=== PATIENT | male | born 1955 | race Two or more races ===

== ENCOUNTER 2018-09-15 18:22 | Emergency (ER) | payer SELFPAY ==
[~2018-09-15] VITALS: Ht 182.9 cm; Wt 99.8 kg
[~2018-09-15 18:22] MED LIST: DENIES ANY HOME MEDS
[2018-09-15 18:51] VITALS: BP 179/99
[2018-09-15] MEDS ORDERED: FLUORESCEIN SOD 1 MG TEST STRIP ONE (20:21)
[2018-09-15] MEDS ORDERED: GENTAMICIN OPTH sol 0.3% 5ml RIGHTEYE ONE (20:45)
[2018-09-15] MEDS ORDERED: FLUORESCEIN SOD 1 MG TEST STRIP RIGHTEYE ONE (20:45)
[2018-09-15] MEDS ORDERED: TETRACAINE HCL 0.5% OPTH(EYE) SOLN 4ML RIGHTEYE ONE (20:45)
[2018-09-15] MEDS ORDERED: GENTAMICIN OPTH sol 0.3% 5ml EACHEYE ONE (20:45)
[2018-09-15] MEDS ORDERED: TETANUS-DIPTH-ACEL PERTUSSIS 0.5ML SYRG IM ONE (21:00)
== END 2018-09-15 21:20 | disposition home or self-care (01) ==
LOC: ER 18:24
DX: T15.01XA Foreign body in cornea, right eye, initial encounter (principal); I10 Essential (primary) hypertension; F17.210 Nicotine dependence, cigarettes, uncomplicated; X58.XXXA Exposure to other specified factors, initial encounter; Y93.89 Activity, other specified; Y92.89 Other specified places as the place of occurrence of the external cause; Y99.8 Other external cause status
CPT/HCPCS: 65222

== ENCOUNTER 2018-11-17 12:35 | Inpatient (IN) | payer SELFPAY ==
[~2018-11-17] VITALS: Ht 182.9 cm; Wt 93.0 kg
[2018-11-17 14:43] LABS: Albumin 2.4 g/dL (3.4-5.0); Calcium 7.8 mg/dL (8.5-10.1); Potassium 3.7 mmol/L (3.5-5.1)
[2018-11-17 14:46] LABS: Basophils # (auto) 0.1 uL; Basophils % (auto) 0.9 % (0.0-2.0); Eosinophils # (auto) 0 uL; Eosinophils % (auto) 0.4 % (0.0-7.0); Hematocrit 47.2 % (41.0-53.0); Lymphocytes % (auto) 19.9 % (10.0-50.0); Mean Corpuscular Hemoglobin 28.5 pg (28.0-32.0); Mean Corpuscular Hgb Conc. 33.9 g/dL (32.0-36.0); Mean Corpuscular Volume 84.1 fL (80.0-100.0); Monocytes # (auto) 0.8 uL; Monocytes % (auto) 7.7 % (0.0-12.0); Neutrophils # (auto) 7.1 uL; Neutrophils % (auto) 71.1 % (37.0-80.0); Nucleated Red Blood Cells % 0.1 %; Platelet Count (auto) 273 10^3/uL (140-450); Red Blood Cells 5.62 10^6/uL (4.5-5.90); Red Cell Distribution Width 13.7 % (11.8-14.3)
[2018-11-17 14:47] LABS: BUN/Creatinine Ratio 15.8; Bilirubin, Total 0.9 mg/dL (0.2-1.0); Total Protein 7.9 g/dL (6.4-8.2)
[2018-11-17 15:10] LABS: Urine Bacteria NONE SEEN /hpf (None Seen); Urine Blood 1+ /uL (Negative); Urine Hyaline Cast FEW /lpf (0 - 2); Urine Mucus FEW (None Seen); Urine Specific Gravity 1.023 (1.001-1.035); Urine WBC 2 /hpf (0 - 3)
[2018-11-17] MEDS ORDERED: SODIUM CHLORIDE 0.9% 1,000 ML IV ONE ×2 (15:45)
[2018-11-17] MEDS: SODIUM CHLORIDE 0.9% 1,000 ML IV SCH (16:17)
[2018-11-17] MEDS ORDERED: TEMAZEPAM 15 MG CAP PO PRN (16:30)
[2018-11-17] MEDS ORDERED: PROMETHAZINE HCL 25 MG/ML 1ML IV PRN (16:30)
[2018-11-17] MEDS ORDERED: traMADol HCL 50 MG TAB PO PRN (16:30)
[2018-11-17] MEDS ORDERED: cefTRIAXone 1GM/50ML D5W 50 ML IV ONE (16:30)
[2018-11-17] MEDS ORDERED: MORPHINE SULF INJ 2 MG/ML SYRINGE 1ML IV PRN (16:30)
[2018-11-17] MEDS ORDERED: LACTULOSE 20Gm/30ML SOLN PO PRN (16:30)
[2018-11-17] MEDS ORDERED: DEXTROSE (50%) 50ML SYRG IV PRN (16:30)
[2018-11-17] MEDS ORDERED: MORPHINE SULFATE 4 MG/ML SYR/VIAL IV PRN (16:30)
[2018-11-17] MEDS ORDERED: NITROGLYCERIN 0.4 MG SL TAB SL PRN (16:30)
[2018-11-17] MEDS ORDERED: LORazepam 0.5 MG TAB PO PRN (16:30)
[2018-11-17] MEDS ORDERED: IOHEXOL 350 MG/ML 100ML IJ ONE (16:39)
[2018-11-17] MEDS: ENOXAPARIN SOD 40 MG/0.4 ML SYRINGE SC SCH (16:45)
[2018-11-17] MEDS: PANTOPRAZOLE 40 MG TAB PO SCH (16:45)
[2018-11-17] MEDS: InsuLIN REG 1unit/0.01ml Soln (100units/ml) SC SCH ×2 (17:00→22:00)
[2018-11-17 17:10] LABS: CRP High Sensitivity 13.8 mg/dL (< 0.3)
[2018-11-17] MEDS: ACCU-CHEK COMFORT CURVE STRIP VI SCH ×2 (17:22→22:12)
--- NOTE | 2018-11-17 21:21 | NUR ---
Telemetry admit from [facility] admitted to Telemetry unit. Patient oriented to HEAVENLY ELLISON RN primary RN, unit, room, bed, and unit policies regarding patient care and visiting hours. Patient now on continuous telemetry monitoring, tele box # [id number] and telemetry reading on arrival to unit is SR. Patient weighed by bedscale and encouraged to call if they need something. All questions and concerns addressed, patient verbalized understanding.
[2018-11-17 21:30] VITALS: BP 126/81
[2018-11-17 22:00] VITALS: BP 126/81
[2018-11-18] MEDS: SODIUM CHLORIDE 0.9% 1,000 ML IV SCH ×3 (02:17→21:43)
[2018-11-18 04:30] VITALS: BP 115/75
[2018-11-18] MEDS: ACCU-CHEK COMFORT CURVE STRIP VI SCH ×4 (06:30→21:43)
[2018-11-18] MEDS: InsuLIN REG 1unit/0.01ml Soln (100units/ml) SC SCH ×4 (06:30→21:43)
--- NOTE | 2018-11-18 07:01 | NUR ---
Closing Shift Note Endorsed care to day shift RN Tran.
[2018-11-18 07:12] LABS: Albumin 1.8 g/dL (3.4-5.0); BUN/Creatinine Ratio 19.4; Calcium 7.1 mg/dL (8.5-10.1); Potassium 3.8 mmol/L (3.5-5.1)
[2018-11-18 07:14] LABS: Bilirubin, Total 0.7 mg/dL (0.2-1.0); Total Protein 6.4 g/dL (6.4-8.2)
--- NOTE | 2018-11-18 07:30 | NUR ---
OPENING NOTE OBSERVED PT SITTING UP IN BED, PT DENIES ANY PAIN OR DISTRESS AT THIS TIME. PT UPDATED ON POC AND VERBALIZED UNDERSTANDING. ENCOURAGED PT TO CONTACT STAFF FOR PRN ASSISTANCE. CALL LIGHT WITHIN REACH AND FALL PRECAUTIONS IN PLACE. WILL CONTINUE TO MONITOR Q1H AND PRN. CONTINUE PT CARE.
[2018-11-18] MEDS: PANTOPRAZOLE 40 MG TAB PO SCH (08:35)
[2018-11-18] MEDS: cefTRIAXone 1GM/50ML D5W 50 ML IV SCH (08:35)
[2018-11-18] MEDS: ENOXAPARIN SOD 40 MG/0.4 ML SYRINGE SC SCH (08:35)
[2018-11-18 09:00] VITALS: BP 122/67
--- NOTE | 2018-11-18 12:35 | NUR ---
AT BEDSIDE WHILE ON LUNCH, COVERING RNARIS AT BEDSIDE WHILE DR. BLANCO AT BEDSIDE DISCUSSING POC WITH PT.
[2018-11-18 13:00] VITALS: BP 125/71
--- NOTE | 2018-11-18 13:03 | NUR ---
Nutrition Assessment Notes please see attached link for complete assessment Est. Needs BW [id number] kcal (23-25 kcal/kgBW), 90-118 gms pro (1.0-1.2 gms/kgBW r/t severe hypoalb). Will continue to monitor pertinent labs and reassess nutrient need prn Addendum: 11/18/18 at [address] Amended: Links added.
--- NOTE | 2018-11-18 13:10 | NUR ---
NPO ORDERS NPO ORDERS REENFORCED WITH PT. PT VERBALIZED UNDERSTANDING.
--- NOTE | 2018-11-18 13:20 | NUR ---
GI CONSULT DR. CANCHOLA AT BEDSIDE.
--- NOTE | 2018-11-18 14:30 | NUR ---
PROCEDURAL CONSENTS PT EXPRESSED HAVING NO FURTHER QUESTIONS IN REGARDS TO PLANNED EGD. CONSENTS SIGNED AND PLACED IN CHART.
[2018-11-18 14:31] LABS: INR 1.15 (0.9-1.15); Prothrombin Time 12.2 sec (9.27-12.13)
--- NOTE | 2018-11-18 15:30 | NUR ---
ROUNDS RECEIVED PHONE CALL FROM VICTORINA STATING PATIENT WAS OFF TELE MONITORING. ENTERED PATIENTS ROOM, PATIENT TANGLED WITH IV POLE APPEARING VERY AGITATED/FRUSTRATED. REMAINS AAO X 4. PT ASSISTED WITH RETURNING BACK TO BED AND UNTANGLING FROM FLUIDS. PATIENTS GOWN TIED AROUND WAIST. ASSISTANCE OFFERED, BUT PATIENT REFUSING, PT STATED, 'I'LL FIGURE THIS SHIT OUT'. INQUIRED TO WHAT HAPPENED. PT STATING, 'THAT LADY CAME IN HERE AND LEFT MY SHIT ALL OVER THE PLACE, UNBUTTONED BY STUFF, AND DIDN'T PUT MY SHIT BACK WHERE IT WAS'. INFORMED PT THERE IS NO NEED TO GET UPSET, THAT THESE ARE EASY THINGS TO BE FIXED AND THAT HELP CAN BE PROVIDED. PT APPEARING MORE RELAXED. WILL CONTINUE TO MONITOR.
[2018-11-18 17:00] VITALS: BP 145/70
--- NOTE | 2018-11-18 18:07 | NUR ---
ROUNDS PT SITTING UP IN BED, DENIES ANY PAIN. REQUESTING ICE CHIPS AND JUICE. DISCUSSED WITH PATIENT DIET ORDERS AND NEED TO REMAIN NPO IN REGARDS TO CURRENT LABS AND PENDING EGD. PATIENT VERY FLAT IN RESPONSE, BUT EVENTUALLY VERBALIZED UNDERSTANDING.
--- NOTE | 2018-11-18 18:38 | NUR ---
ROUNDS INFORMED BY LOCOMOTIVE FIRER/FIREMAN THAT PATIENT/FAMILY ARE INQUIRING TO WHETHER OR NOT PATIENT CAN EAT. RE-EDUCATED PT ON NPO STATUS AND PROVIDED NEW EDUCATION TO PATIENTS SON AT BEDSIDE ON DIET ORDERS IN RELATION TO DIAGNOSIS AND PENDING PROCEDURE. VERBALIZED UNDERSTANDING.
--- NOTE | 2018-11-18 19:24 | NUR ---
Opening Shift Note Assumed care of patient, awake and alert x 4. No S/S of distress/SOB or pain. Bed is in lowest position and locked. Call light within reach. Board updated. Tele box number matches monitor and leads are in correct placement. Instructed on POC and to call for assist PRN, will continue to monitor for changes Q1hr and PRN.
[2018-11-18] MEDS: PANTOPRAZOLE 40 MG/10 ML VIAL IV SCH (21:42)
[2018-11-18 22:00] VITALS: BP 130/80
[2018-11-19 05:00] VITALS: BP 127/62
[2018-11-19] MEDS: InsuLIN REG 1unit/0.01ml Soln (100units/ml) SC SCH ×2 (06:32→11:26)
[2018-11-19] MEDS: ACCU-CHEK COMFORT CURVE STRIP VI SCH ×2 (06:51→11:26)
--- NOTE | 2018-11-19 07:15 | NUR ---
OPENING NOTE OBSERVED PT RESTING IN BED. PT DENIES ANY PAIN AT THIS TIME. POC DISCUSSED WITH PT; INCLUDING NPO STATUS AND PENDING PROCEDURE. PT STATED, 'I DON'T CARE WHAT THEY SAY, I AM EATING AFTER THIS TEST'. CURRENT DIET ORDERS AND DIAGNOSIS REINFORCED WITH PATIENT. ENCOURAGED PT TO CONTACT STAFF FOR PRN ASSISTANCE. CALL LIGHT WITHIN REACH. FALL PRECAUTIONS IN PLACE. WILL CONTINUE TO MONITOR Q1H AND PRN. CONTINUE PT CARE.
[2018-11-19] MEDS: ENOXAPARIN SOD 40 MG/0.4 ML SYRINGE SC SCH (08:20)
[2018-11-19] MEDS: SODIUM CHLORIDE 0.9% 1,000 ML IV SCH (08:21)
[2018-11-19] MEDS ORDERED: diphenhdrAMINE HCL 50 MG/1 ML VL ONE (08:27)
[2018-11-19] MEDS ORDERED: SODIUM CHLORIDE LOCK 10 ML ONE (08:27)
[2018-11-19] MEDS ORDERED: LIDOCAINE VISCOUS 2% 15ML UD ONE (08:27)
[2018-11-19 08:56] VITALS: BP 119/57
[2018-11-19] MEDS: PANTOPRAZOLE 40 MG/10 ML VIAL IV SCH (09:13)
[2018-11-19] MEDS: cefTRIAXone 1GM/50ML D5W 50 ML IV SCH (09:13)
--- NOTE | 2018-11-19 09:47 | NUR ---
OFF UNIT PT TAKEN OFF UNIT FOR EGD VIA [facility]. SURGICAL CHECKLIST COMPLETED. ACCUCHECK 77. PATENT IV TO LAC, INFUSING NS. ROCEPHIN CLAMPED AT THIS TIME, PREVIOUSLY STARTED. INFORMED PRE-OP STAFF OF INCOMPLETE INFUSION. NO DISTRESS NOTED AT TIME OF DEPARTURE.
[2018-11-19] MEDS: fentaNYL CITRATE 100 MCG/2 ML VL ONE ×2 (09:58→10:02)
[2018-11-19] MEDS: MIDAZOLAM HCL 5 MG/ML-1ML VIAL ONE ×2 (09:58→10:02)
--- NOTE | 2018-11-19 10:00 | NUR ---
SPOKE TO MD SPOKE TO DR. BLANCO REGARDING WHETHER OR NOT TO CONTINUE TELEMETRY MONITORING. MD STATING OK TO DC. TELE RETURNED TO VICTORINA VIA BULLET SYSTEM.
--- NOTE | 2018-11-19 10:28 | NUR ---
SPOKE TO MD SPOKE TO DR. BLANCO REGARDING CONSISTENT CARB DIET ORDER AND PENDING LIPASE LAB IN AM. OK TO CONTINUE CONS CARB DIET ORDER.
--- NOTE | 2018-11-19 10:46 | NUR ---
RETURNED TO UNIT PT RETURNED TO UNIT FROM RECOVERY. PATIENT DROWSY, BUT EASY TO AROUSE/AWAKE. NO C/O PAIN. CALL LIGHT WITHIN REACH. BED IN LOW, LOCKED POSITION.
[2018-11-19 12:58] VITALS: BP 120/74
--- NOTE | 2018-11-19 14:20 | NUR ---
FAMILY AT BEDSIDE PATIENTS SON AT BEDSIDE, UPDATED ON POC. VERBALIZED UNDERSTANDING.
--- NOTE | 2018-11-19 15:45 | NUR ---
ROUNDS PT CONTINUES TO REST IN BED. DENIES ANY PAIN AT THIS TIME. INQUIRING TO 'WHAT'S NEXT' FOR HIM WHILE IN THE HOSPITAL. RE-INFORMED OF PENDING AM LABS. VERBALIZED UNDERSTANDING.
--- NOTE | 2018-11-19 16:30 | NUR ---
CARDIOLOGY CONSULT DR. FORMAN ON UNIT FOR CONSULTATION. STATING HE WILL PLACE NOTES IN REGARDS TO NEED FOR F/U RE: ANEURYSM. NO ORDERS RECEIVED AT THIS TIME.
[2018-11-19 17:00] VITALS: BP 138/84
--- NOTE | 2018-11-19 17:12 | NUR ---
STATUS UPON ENTERING ROOM NOTICED PATIENTS GOWN HAD BEEN REMOVED AND HE HAD DISCONNECTED HIMSELF FROM HIS IV. IV FLUIDS LEAKING ON FLOOR. UNIT/ROOM SEARCHED AND PATIENT NOT SEEN. ADELIA NORIEGA, ATTEMPTED TO CONTACT PATIENT. UNSUCCESSFUL. CONTACTED SECURITY. SECURITY STAFF STATING THEY WILL SEARCH FOR PATIENT.
--- NOTE | 2018-11-19 18:10 | NUR ---
STATUS CALLED SECURITY AGAIN. SECURITY STAFF STATING PATIENT HAS NOT BEEN LOCATED. PATIENT HAS STILL NOT RETURNED TO ROOM AT THIS TIME. ON-CALL HOSPITALIST PAGED TO INFORM. JARRELL OBRIEN, RETURNED PAGE. UPDATED ON PT STATUS. AWARE OF ELOPEMENT.
--- NOTE | 2018-11-19 18:12 | NUR ---
STATUS CONTACTED PATIENTS SON, ATUL, TO INFORM OF PATIENTS ELOPEMENT. ATUL STATING HE IS NOT CURRENTLY WITH PT. INFORMED HIM THAT [facility] WOULD BE CONTACTED BECAUSE IV'S WERE NOT REMOVED BY PATIENT IT QUALITY ANALYST PRIOR TO DEPARTURE. ATUL VERBALIZED UNDERSTANDING.
--- NOTE | 2018-11-19 18:16 | NUR ---
STATUS CONTACTED [facility] TO INFORM OF ELOPEMENT WITH IV'S. SPOKE TO [place]. PROVIDED WITH ADDRESS ON FILE.
[2018-11-19] MEDS ORDERED: PANTOPRAZOLE 40 MG TAB PO SCH (22:00)
== END 2018-11-19 18:10 | disposition left against medical advice (07) | DRG 640 ==
LOC: ER 12:42 → TELE 16:21 → TELE-CENTR 21:17 → CENTRAL 11-19 10:24
PROVIDERS: ADMIT Internal Medicine; ATTEND Family Medicine
PROC: 0DB68ZX Excision of Stomach, Via Natural or Artificial Opening Endoscopic, Diagnostic (ICD-10-PCS; principal; 2018-11-19 09:58)
DX: E87.1 Hypo-osmolality and hyponatremia (principal); K85.90 Acute pancreatitis without necrosis or infection, unspecified; E44.0 Moderate protein-calorie malnutrition; N39.0 Urinary tract infection, site not specified; F17.210 Nicotine dependence, cigarettes, uncomplicated; R62.7 Adult failure to thrive; K76.0 Fatty (change of) liver, not elsewhere classified; K29.70 Gastritis, unspecified, without bleeding; R74.8 Abnormal levels of other serum enzymes; I70.0 Atherosclerosis of aorta; I71.2 Thoracic aortic aneurysm, without rupture; E11.65 Type 2 diabetes mellitus with hyperglycemia; Z82.49 Family history of ischemic heart disease and other diseases of the circulatory system; Z68.27 Body mass index [BMI] 27.0-27.9, adult
CPT/HCPCS: 36415; 71045; 71275; 74176; 76705; 76775; 80053; 81001; 82150; 82378; 82962; 83036; 83690; 84154; 84443; 85025; 85610; 85652; 86141; 87086; 96361; 96374; C9113; G0378; J0696; J2250

== ENCOUNTER 2021-08-16 13:20 | Inpatient (IN) | payer MEDICAID, SELFPAY ==
[~2021-08-16] VITALS: Ht 182.9 cm; Wt 94.8 kg
[2021-08-16] MEDS ORDERED: methylPREDNISolone SOD SUCC 125 MG/2 ML VL IV ONE (15:00)
[2021-08-16 15:53] LABS: Basophils # (auto) 0 10 ^3/uL (0-0.2); Basophils % (auto) 0.5 % (0.0-2.0); Eosinophils # (auto) 0.1 10 ^3/uL (0-0.8); Eosinophils % (auto) 1.1 % (0.0-7.0); Hematocrit 46.4 % (41.0-53.0); Hemoglobin 16.3 g/dL (13.5-17.5); Lymphocytes # (auto) 1.9 10 ^3/uL (0.4-5.4); Lymphocytes % (auto) 23.3 % (10.0-50.0); Mean Corpuscular Hemoglobin 28.2 pg (28.0-32.0); Mean Corpuscular Hgb Conc. 35.1 g/dL (32.0-36.0); Mean Corpuscular Volume 80.4 fL (80.0-100.0); Monocytes # (auto) 0.9 10 ^3/uL (0-1.3); Monocytes % (auto) 10.4 % (0.0-12.0); Neutrophils # (auto) 5.4 10 ^3/uL (1.6-8.6); Neutrophils % (auto) 64.7 % (37.0-80.0); Nucleated Red Blood Cells % 0.2 %; Red Blood Cells 5.77 10^6/uL (4.5-5.90); Red Cell Distribution Width 13.2 % (11.8-14.3); White Blood Cell 8.3 10^3/uL (4.4-10.8)
[2021-08-16 16:09] LABS: Albumin 2.8 g/dL (3.4-5.0); Calcium 8.4 mg/dL (8.5-10.1); Magnesium 3.6 mg/dL (1.6-2.6); Potassium 3.3 mmol/L (3.5-5.1)
[2021-08-16 16:18] LABS: BUN/Creatinine Ratio 21.1; Bilirubin, Total 0.6 mg/dL (0.2-1.0); CRP High Sensitivity 5.07 mg/dL (< 0.3); Total Protein 7.7 g/dL (6.4-8.2)
[2021-08-16] MEDS ORDERED: CHOLECALCIFEROL (VITD3) 2,000 UNIT CAP/TAB PO ONE (19:15)
[2021-08-16] MEDS ORDERED: ASCORBIC ACID 500 MG TAB PO ONE (19:15)
[2021-08-16] MEDS ORDERED: AZITHROMYCIN 500MG/ 250ML 250 ML IV ONE (19:15)
[2021-08-16] MEDS ORDERED: ZINC SULFATE 220mg CAP or TAB PO ONE (19:15)
[2021-08-16] MEDS ORDERED: DEXTROSE (50%) 50ML SYRG IV PRN (21:15)
[2021-08-16] MEDS ORDERED: ALBUTEROL SULF HFA 90MCG INH 200DOSE IN PRN (21:15)
[2021-08-16] MEDS ORDERED: ONDANSETRON HCL 4 MG/2 ML VIAL IV PRN (21:15)
[2021-08-16] MEDS ORDERED: MORPHINE SULFATE INJECTION 2 MG/ML SYRG IV PRN (21:15)
[2021-08-16] MEDS ORDERED: ACETAMINOPHEN 500 MG TAB PO PRN (21:15)
[2021-08-16] MEDS ORDERED: cefTRIAXone 1GM/50ML D5W 50 ML IV ONE (21:15)
[2021-08-16] MEDS ORDERED: TEMAZEPAM 15 MG CAP PO PRN (21:15)
[2021-08-16] MEDS ORDERED: NITROGLYCERIN 0.4 MG SL TAB SL PRN (21:15)
[2021-08-16] MEDS ORDERED: POTASSIUM CHL 20 Meq TABLET PO ONE (23:15)
[2021-08-16] MEDS: ENOXAPARIN SOD 40 MG/0.4 ML SYRINGE SC SCH (23:19)
[2021-08-16] MEDS: ACCU-CHEK COMFORT CURVE STRIP VI SCH (23:20)
[2021-08-16] MEDS: InsuLIN REG 1unit/0.01ml Soln (100units/ml) SC SCH (23:30)
[2021-08-17 02:42] LABS: Magnesium 2.9 mg/dL (1.6-2.6)
[2021-08-17 02:51] LABS: CRP High Sensitivity 4.56 mg/dL (< 0.3)
[2021-08-17 05:25] VITALS: BP 119/91
[2021-08-17] MEDS: InsuLIN REG 1unit/0.01ml Soln (100units/ml) SC SCH ×3 (06:53→17:30)
[2021-08-17] MEDS: ACCU-CHEK COMFORT CURVE STRIP VI SCH ×3 (06:53→17:12)
[2021-08-17 07:59] LABS: Basophils # (auto) 0 10 ^3/uL (0-0.2); Basophils % (auto) 0.2 % (0.0-2.0); Eosinophils # (auto) 0 10 ^3/uL (0-0.8); Hematocrit 43.9 % (41.0-53.0); Hemoglobin 15.4 g/dL (13.5-17.5); Lymphocytes # (auto) 1.4 10 ^3/uL (0.4-5.4); Lymphocytes % (auto) 26.6 % (10.0-50.0); Mean Corpuscular Hemoglobin 28.3 pg (28.0-32.0); Mean Corpuscular Hgb Conc. 35.1 g/dL (32.0-36.0); Mean Corpuscular Volume 80.6 fL (80.0-100.0); Monocytes # (auto) 0.4 10 ^3/uL (0-1.3); Monocytes % (auto) 8.1 % (0.0-12.0); Neutrophils # (auto) 3.4 10 ^3/uL (1.6-8.6); Neutrophils % (auto) 65.1 % (37.0-80.0); Nucleated Red Blood Cells % 0.1 %; Red Blood Cells 5.45 10^6/uL (4.5-5.90); Red Cell Distribution Width 13.2 % (11.8-14.3); White Blood Cell 5.2 10^3/uL (4.4-10.8)
[2021-08-17 08:14] LABS: Calcium 8.2 mg/dL (8.5-10.1); Potassium 4.3 mmol/L (3.5-5.1)
[2021-08-17 08:19] LABS: Albumin 2.6 g/dL (3.4-5.0); BUN/Creatinine Ratio 30.5; Bilirubin, Total 0.4 mg/dL (0.2-1.0); Total Protein 6.5 g/dL (6.4-8.2)
[2021-08-17] MEDS ORDERED: cefTRIAXone 1GM/50ML D5W 50 ML IV SCH (09:00)
[2021-08-17] MEDS ORDERED: PANTOPRAZOLE 40 MG TAB PO SCH (10:00)
[2021-08-17] MEDS ORDERED: amLODIPine BESYLATE 5 MG TAB PO SCH (10:00)
[2021-08-17] MEDS ORDERED: AZITHROMYCIN 500MG/ 250ML 250 ML IV SCH (10:00)
[2021-08-17] MEDS ORDERED: ASCORBIC ACID 1,000 MG TAB PO SCH (10:00)
[2021-08-17] MEDS: ENOXAPARIN SOD 40 MG/0.4 ML SYRINGE SC SCH (10:00)
[2021-08-17] MEDS ORDERED: DexAMETHasone SOD PHOS 10MG/1ML VIAL INJ IV SCH (10:00)
[2021-08-17] MEDS ORDERED: CHOLECALCIFEROL (VITD3) 2,000 UNIT CAP/TAB PO SCH (10:00)
[2021-08-17] MEDS ORDERED: ZINC SULFATE 220mg CAP or TAB PO SCH (10:00)
[2021-08-17 19:42] VITALS: BP 131/90
== END 2021-08-17 23:13 | disposition left against medical advice (07) | DRG 139 ==
LOC: ER 13:20 → TELE 21:07
PROVIDERS: ADMIT Nurse Practitioner; ATTEND Internal Medicine
DX: J18.9 Pneumonia, unspecified organism (principal); J96.01 Acute respiratory failure with hypoxia; E44.0 Moderate protein-calorie malnutrition; E11.9 Type 2 diabetes mellitus without complications; I10 Essential (primary) hypertension; E87.6 Hypokalemia; F17.210 Nicotine dependence, cigarettes, uncomplicated; Z20.822 Contact with and (suspected) exposure to COVID-19; Z53.29 Procedure and treatment not carried out because of patient's decision for other reasons; Z68.28 Body mass index [BMI] 28.0-28.9, adult
CPT/HCPCS: 36415; 71045; 71275; 80053; 82728; 82962; 83605; 83735; 83880; 84484; 85025; 85379; 86141; 87040; 87426; 87804; 93005; 93970; 96365; 96367; 96375; G0378; J0696; J1100; J1815

== ENCOUNTER 2022-05-25 00:15 | Emergency (ER) | payer MEDICAID ==
[~2022-05-25] VITALS: Ht 182.9 cm; Wt 90.9 kg
[2022-05-25 00:50] VITALS: BP 156/102
== END 2022-05-25 04:57 | disposition home or self-care (01) ==
LOC: ER 00:21
DX: M79.641 Pain in right hand (principal); M25.511 Pain in right shoulder; M25.512 Pain in left shoulder; M54.50 Low back pain, unspecified; I10 Essential (primary) hypertension; E11.9 Type 2 diabetes mellitus without complications; F17.210 Nicotine dependence, cigarettes, uncomplicated; V49.59XA Passenger injured in collision with other motor vehicles in traffic accident, initial encounter; Y93.89 Activity, other specified; Y92.410 Unspecified street and highway as the place of occurrence of the external cause; Y99.8 Other external cause status
CPT/HCPCS: 73030; 73130; 73502

== ENCOUNTER 2023-10-14 15:52 | Inpatient (IN) | payer MEDICAID ==
[~2023-10-14] VITALS: Ht 182.9 cm; Wt 98.6 kg
[2023-10-14 20:01] LABS: Basophils # (auto) 0.1 10 ^3/uL (0-0.2); Basophils % (auto) 0.6 % (0.0-2.0); Eosinophils # (auto) 0.2 10 ^3/uL (0-0.8); Hematocrit 47.1 % (41.0-53.0); Hemoglobin 15.9 g/dL (13.5-17.5); Lymphocytes # (auto) 3.8 10 ^3/uL (0.4-5.4); Lymphocytes % (auto) 24.9 % (10.0-50.0); Mean Corpuscular Hemoglobin 28.3 pg (28.0-32.0); Mean Corpuscular Hgb Conc. 33.7 g/dL (32.0-36.0); Mean Corpuscular Volume 83.9 fL (80.0-100.0); Monocytes # (auto) 0.9 10 ^3/uL (0-1.3); Monocytes % (auto) 5.9 % (0.0-12.0); Neutrophils # (auto) 10.3 10 ^3/uL (1.6-8.6); Neutrophils % (auto) 67.6 % (37.0-80.0); Red Blood Cells 5.61 10^6/uL (4.5-5.90); Red Cell Distribution Width 13.4 % (11.8-14.3); White Blood Cell 15.3 10^3/uL (4.4-10.8)
[2023-10-14 20:17] LABS: INR 1.01 (0.9-1.15); Partial Thromboplastin Time 29.9 SEC (24.5-34.5); Prothrombin Time 10.6 sec (9.3-11.8)
[2023-10-14 20:18] LABS: Alanine Aminotransferase 43 U/L (7-40); Albumin 4.5 g/dL (3.2-4.8); Alkaline Phosphatase 79 U/L (46-116); Anion Gap 5 (5-15); Aspartate Aminotransferase 24 U/L (13-40); BUN/Creatinine Ratio 13.2 (10.0-20.0); Blood Urea Nitrogen 14 mg/dL (9-23); Calcium 9.5 mg/dL (8.7-10.4); Carbon Dioxide 26 mmol/L (20-30); Chloride 108 mmol/L (98-107); Creatine Kinase IFCC 144 U/L (46-171); Glucose 164 mg/dL (74-106); Magnesium 2.1 mg/dL (1.6-2.6); Potassium 4.4 mmol/L (3.5-5.1); Sodium 139 mmol/L (136-145)
[2023-10-14 20:19] LABS: Bilirubin, Total 0.5 mg/dL (0.2-1.0); Total Protein 7.2 g/dL (5.7-8.2)
[2023-10-14] MEDS: ACCU-CHEK COMFORT CURVE STRIP VI ONE (20:24)
[2023-10-14 20:29] LABS: Blood Alcohol < 3.0 mg/dL (<10)
[2023-10-14] MEDS: amLODIPine BESYLATE 5 MG TAB PO ONE (21:00)
[2023-10-14] MEDS: ACETAMINOPHEN 325 MG TAB PO ONE (21:00)
[2023-10-14] MEDS: SODIUM CHLORIDE 0.9% 1,000 ML IVB ONE (21:08)
[2023-10-15] VITALS (7 sets, daily range): BP systolic 107–133; BP diastolic 72–95; PULSE 64–87; RESP 18–20; TEMP 97.3–98.2; O2SAT 93–99
[2023-10-15] MEDS ORDERED: HYDROcodone-ACET 5/325MG TAB PO PRN
[2023-10-15] MEDS ORDERED: ONDANSETRON HCL 4 MG/2 ML VIAL IV PRN
[2023-10-15] MEDS ORDERED: ACETAMINOPHEN 325 MG TAB PO PRN
[2023-10-15] MEDS ORDERED: DOCUSATE SOD 100 MG CAP PO PRN
[2023-10-15] MEDS ORDERED: DEXTROSE (50%) 50ML SYRG IV PRN
[2023-10-15] MEDS ORDERED: hydrALAZINE HCL 20 MG/ML VL IV PRN
[2023-10-15] MEDS: SODIUM CHLORIDE 0.9% 1,000 ML IV SCH (00:14)
[2023-10-15] MEDS ORDERED: MORPHINE SULFATE INJ 2 MG/ml SYRG IV PRN (02:45)
[2023-10-15] MEDS ORDERED: NITROGLYCERIN 0.4 MG SL TAB SL PRN (02:45)
[2023-10-15 03:45] LABS: Urine Bacteria FEW /hpf (None Seen); Urine Blood Negative /uL (Negative); Urine Clarity Clear (Clear); Urine Color Colorless (Yellow); Urine Mucus FEW (None Seen); Urine Protein, UAD TRACE (Negative); Urine Specific Gravity 1.019 (1.001-1.035); Urine Urobilinogen Normal (Negative); Urine WBC 1 /hpf (0 - 3); Urine pH 5.5 (5.0-8.0)
[2023-10-15 06:25] LABS: Basophils # (auto) 0.1 10 ^3/uL (0-0.2); Basophils % (auto) 0.8 % (0.0-2.0); Eosinophils # (auto) 0.2 10 ^3/uL (0-0.8); Eosinophils % (auto) 2.2 % (0.0-7.0); Hemoglobin 15.4 g/dL (13.5-17.5); Lymphocytes # (auto) 3.2 10 ^3/uL (0.4-5.4); Lymphocytes % (auto) 33.2 % (10.0-50.0); Mean Corpuscular Hemoglobin 28.7 pg (28.0-32.0); Mean Corpuscular Hgb Conc. 34.3 g/dL (32.0-36.0); Mean Corpuscular Volume 83.6 fL (80.0-100.0); Monocytes # (auto) 0.7 10 ^3/uL (0-1.3); Neutrophils # (auto) 5.5 10 ^3/uL (1.6-8.6); Neutrophils % (auto) 56.8 % (37.0-80.0); Nucleated Red Blood Cells % 0.2 %; Red Blood Cells 5.38 10^6/uL (4.5-5.90); Red Cell Distribution Width 13.7 % (11.8-14.3); White Blood Cell 9.7 10^3/uL (4.4-10.8)
[2023-10-15] MEDS: cefTRIAXone 1GM/50ML D5W 50 ML IV ONE (06:31)
[2023-10-15 06:33] LABS: Amphetamine Screen, Urine Neg (NEGATIVE); Benzodiazephine Screen, Urine Neg (NEGATIVE)
[2023-10-15 06:34] LABS: Barbiturate Scree,Urine Neg (NEGATIVE); Cannabinoid Screen, Urine Neg (NEGATIVE); Cocaine Screen, Urine Neg (NEGATIVE); Opiate Scree,Urine Neg (NEGATIVE); Phencyclidine Screen, Urine Neg (NEGATIVE)
[2023-10-15 06:43] LABS: Alanine Aminotransferase 36 U/L (7-40); Albumin 4.2 g/dL (3.2-4.8); Alkaline Phosphatase 74 U/L (46-116); Anion Gap 6 (5-15); Aspartate Aminotransferase 18 U/L (13-40); BUN/Creatinine Ratio 10.3 (10.0-20.0); Bilirubin, Total 0.5 mg/dL (0.2-1.0); Blood Urea Nitrogen 10 mg/dL (9-23); Calcium 8.8 mg/dL (8.7-10.4); Carbon Dioxide 24 mmol/L (20-30); Chloride 109 mmol/L (98-107); Glucose 193 mg/dL (74-106); Potassium 3.7 mmol/L (3.5-5.1); Sodium 139 mmol/L (136-145)
[2023-10-15] MEDS: ACCU-CHEK COMFORT CURVE STRIP VI SCH (07:27)
[2023-10-15] MEDS: InsuLIN REG 1unit/0.01ml Soln (100units/ml) SC SCH ×2 (07:30→21:46)
[2023-10-15 11:42] LABS: Magnesium 2.1 mg/dL (1.6-2.6)
[2023-10-15] MEDS: ASPirin 81 mg TAB PO ONE (15:48)
[2023-10-15] MEDS: METOPROLOL TARTRATE 25 MG TAB PO ONE (15:48)
[2023-10-15] MEDS: MAGNESIUM SULFATE 1GM/100ML 100 ML IV SCH (17:15)
[2023-10-15] MEDS: METOPROLOL TARTRATE 25 MG TAB PO SCH (21:44)
[2023-10-15] MEDS: ATORVASTATIN 20 MG TAB PO SCH (21:44)
[2023-10-15] MEDS: ENOXAPARIN SOD 100 MG/1 ML SYRINGE SC SCH (21:46)
[2023-10-15] MEDS ORDERED: ENOXAPARIN SOD 100 MG/1 ML SYRINGE SC SCH (22:00)
[2023-10-16] VITALS (10 sets, daily range): BP systolic 123–155; BP diastolic 71–94; PULSE 58–71; RESP 18–20; TEMP 97.7–98.3; O2SAT 94–97
[2023-10-16 06:30] LABS: Basophils # (auto) 0.1 10 ^3/uL (0-0.2); Basophils % (auto) 0.8 % (0.0-2.0); Eosinophils # (auto) 0.2 10 ^3/uL (0-0.8); Eosinophils % (auto) 1.9 % (0.0-7.0); Hematocrit 42.5 % (41.0-53.0); Hemoglobin 14.5 g/dL (13.5-17.5); Lymphocytes # (auto) 3.3 10 ^3/uL (0.4-5.4); Lymphocytes % (auto) 35.4 % (10.0-50.0); Mean Corpuscular Hemoglobin 28.7 pg (28.0-32.0); Mean Corpuscular Hgb Conc. 34.3 g/dL (32.0-36.0); Mean Corpuscular Volume 83.7 fL (80.0-100.0); Monocytes # (auto) 0.7 10 ^3/uL (0-1.3); Monocytes % (auto) 7.3 % (0.0-12.0); Neutrophils # (auto) 5.1 10 ^3/uL (1.6-8.6); Neutrophils % (auto) 54.6 % (37.0-80.0); Red Blood Cells 5.07 10^6/uL (4.5-5.90); Red Cell Distribution Width 13.7 % (11.8-14.3); White Blood Cell 9.4 10^3/uL (4.4-10.8)
[2023-10-16 06:51] LABS: Alanine Aminotransferase 33 U/L (7-40); Albumin 3.7 g/dL (3.2-4.8); Alkaline Phosphatase 64 U/L (46-116); Anion Gap 7 (5-15); Aspartate Aminotransferase 19 U/L (13-40); BUN/Creatinine Ratio 9.7 (10.0-20.0); Blood Urea Nitrogen 10 mg/dL (9-23); Calcium 8.6 mg/dL (8.7-10.4); Carbon Dioxide 22 mmol/L (20-30); Chloride 112 mmol/L (98-107); Glucose 156 mg/dL (74-106); Magnesium 2.3 mg/dL (1.6-2.6); Potassium 3.7 mmol/L (3.5-5.1); Sodium 141 mmol/L (136-145)
[2023-10-16 06:52] LABS: Bilirubin, Total 0.5 mg/dL (0.2-1.0); Total Protein 6.1 g/dL (5.7-8.2)
[2023-10-16] MEDS: cefTRIAXone 1GM/50ML D5W 50 ML IV SCH (08:40)
[2023-10-16] MEDS: ASPirin 81 mg TAB PO SCH (08:41)
[2023-10-17 05:00] VITALS: BP 126/91; PULSE 64; RESP 20; TEMP 97.7; O2SAT 96
[2023-10-17 06:11] LABS: Anion Gap 7 (5-15); Carbon Dioxide 22 mmol/L (20-30); Chloride 110 mmol/L (98-107); Potassium 3.6 mmol/L (3.5-5.1); Sodium 139 mmol/L (136-145)
[2023-10-17 06:13] LABS: Calcium 8.8 mg/dL (8.7-10.4)
[2023-10-17 06:17] LABS: BUN/Creatinine Ratio 9.5 (10.0-20.0); Blood Urea Nitrogen 9 mg/dL (9-23); Glucose 116 mg/dL (74-106)
[2023-10-17 06:18] LABS: Magnesium 2.1 mg/dL (1.6-2.6)
[2023-10-17 06:19] LABS: Basophils # (auto) 0.1 10 ^3/uL (0-0.2); Basophils % (auto) 0.7 % (0.0-2.0); Eosinophils # (auto) 0.2 10 ^3/uL (0-0.8); Eosinophils % (auto) 1.6 % (0.0-7.0); Hematocrit 44.1 % (41.0-53.0); Hemoglobin 15.2 g/dL (13.5-17.5); Lymphocytes # (auto) 3.1 10 ^3/uL (0.4-5.4); Lymphocytes % (auto) 30.6 % (10.0-50.0); Mean Corpuscular Hemoglobin 28.7 pg (28.0-32.0); Mean Corpuscular Hgb Conc. 34.5 g/dL (32.0-36.0); Mean Corpuscular Volume 83.3 fL (80.0-100.0); Monocytes # (auto) 0.7 10 ^3/uL (0-1.3); Neutrophils % (auto) 60.1 % (37.0-80.0); Nucleated Red Blood Cells % 0.1 %; Red Blood Cells 5.29 10^6/uL (4.5-5.90); Red Cell Distribution Width 13.3 % (11.8-14.3); White Blood Cell 10.1 10^3/uL (4.4-10.8)
[2023-10-17 08:00] VITALS: PULSE 61
[2023-10-17 09:00] VITALS: BP 103/66; PULSE 55; RESP 18; TEMP 97.9; O2SAT 94
[2023-10-17 13:00] VITALS: BP 158/96; PULSE 61; RESP 18; TEMP 98.2; O2SAT 94
== END 2023-10-17 16:10 | disposition left against medical advice (07) | DRG 201 ==
LOC: ER 15:52 → TELE 10-15 02:35 → TELE-WESTW 10-15 08:18
PROVIDERS: ADMIT Internal Medicine; ATTEND Internal Medicine
DX: I47.20 Ventricular tachycardia, unspecified (principal); R65.10 Systemic inflammatory response syndrome (SIRS) of non-infectious origin without acute organ dysfunction; E11.65 Type 2 diabetes mellitus with hyperglycemia; I48.0 Paroxysmal atrial fibrillation; E66.01 Morbid (severe) obesity due to excess calories; I10 Essential (primary) hypertension; I73.9 Peripheral vascular disease, unspecified; S90.32XA Contusion of left foot, initial encounter; I08.1 Rheumatic disorders of both mitral and tricuspid valves; Z68.29 Body mass index [BMI] 29.0-29.9, adult
CPT/HCPCS: 36415; 70450; 71045; 73502; 73630; 80048; 80053; 80061; 80307; 80320; 81001; 82306; 82550; 82607; 82962; 83036; 83605; 83735; 83880; 84443; 84484; 85025; 85610; 85730; 87040; 93005; 93306; 93886; 96361; 96365; G0378; J1815

== ENCOUNTER 2024-08-05 14:32 | Emergency (ER) | payer MEDICAID ==
[~2024-08-05] VITALS: Ht 182.9 cm; Wt 101.2 kg
[2024-08-05 15:03] VITALS: BP 146/99; PULSE 78; RESP 19; O2SAT 97
--- NOTE | 2024-08-05 18:42 | ED.PDOC ---
History of Present Illness HPI Comments 69-year-old male presents with a chief complaint of eye redness and eye pain s/p grinding metal. 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 Patient reports that he got a piece of metal into his right eye. Patient mentions that this has happened to him before and had to have his eye flushed out. Patient denies any vision changes. Chief Complaint: Foreign Body Time Seen by MD: 18:34 Primary Care Provider: NONE Reviewed Notes: Medications, Allergies Allergies: Coded Allergies: NO KNOWN ALLERGIES (Unverified , 04/08/15) Home Meds No Active Prescriptions or Reported Meds Information Source: Patient Mode of Arrival: Ambulatory Severity: Moderate Timing: Hours Duration: Since onset Prehospital treatment: None Past Medical History PAST MEDICAL HISTORY: DM, HTN Surgical History: Denies all surgeries Family History Family History: Reviewed,noncontributory to illness Social History Smoker: Cigarettes, Less Than 1 Pack/Day Alcohol: Denies ETOH Use Drugs: Denies Drug Use Lives In: Home Constitutional: denies: chills, diaphoresis, fatigue, fever, malaise, sweats, weakness, others EENTM: reports: eye pain, eye redness; denies: blurred vision, double vision, ear bleeding, ear discharge, ear drainage, ear pain, ear ringing, hearing loss, mouth pain, mouth swelling, nasal discharge, nose bleeding, nose congestion, nose pain, photophobia, tearing, throat pain, throat swelling, voice changes, others Respiratory: denies: cough, hemoptysis, orthopnea, SOB at rest, shortness of breath, SOB with excertion, stridor, wheezing, others Cardiovascular: denies: chest pain, dizzy spells, diaphoresis, Dyspnea on exertion, edema, irregular heart beat, left arm pain, lightheadedness, palpitations, PND, syncope, others Gastrointestinal: denies: abdomen distended, abdominal pain, blood streaked bowels, constipated, diarrhea, dysphagia, difficulty swallowing, hematemesis, melena, nausea, poor appetite, poor fluid intake, rectal bleeding, rectal pain, vomiting, others Genitourinary: denies: burning, dysuria, flank pain, frequency, hematuria, incontinence, penile discharge, penile sore, pain, testicle pain, testicle swelling, urgency, others Neurological: denies: dizziness, fainting, headache, left sided numbness, left sided weakness, numbness, paresthesia, pre-existing deficit, right sided numbn ess, right sided weakness, seizure, speech problems, tingling, tremors, weakness, others Musculoskeletal: denies: back pain, gout, joint pain, joint swelling, muscle pain, muscle stiffness, neck pain, others Integumetry: denies: bruises, change in color, change in hair/nails, dryness, laceration, lesions, lumps, rash, wounds, others Allergic/Immunocompromised: denies: Difficulty Healing, Frequent Infections, Hives, Itching, others Hematologic/Lymphatic: denies: anemia, blood clots, easy bleeding, easy bruising, swollen glands, others Endocrine: denies: excessive hunger, excessive sweating, excessive thirst, excessive urination, flushing, intolerance to cold, intolerance to heat, unexplained weight gain, unexplained weight loss, others Psychiatric: denies: anxiety, bipolar disorder, depression, hopeless, panic disorder, schizophrenia, sleepless, suicidal, others All Other Systems: Reviewed and Negative Physical Exam General Appearance: No Apparent Distress, Normal HEENT: Pharynx Normal, TMs Normal, Other (RIGHT EYE CONJUNCTIVA HEMORRHAGE) Neck: Full Range of Motion, Non-Tender, Normal, Normal Inspection Respiratory: Chest Non-Tender, Lungs Clear, No Accessory Muscle Use, No Respiratory Distress, Normal Breath Sounds Cardiovascular: No Edema, No JVD, No Murmur, No Gallop, Normal Peripheral Pulses, Regular Rate/Rhythm Breast Exam: Deferred Gastrointestinal: No Organomegaly, Non Tender, No Pulsatile Mass, Normal Bowel Sounds, Soft Genitalia: Deferred Pelvic: Deferred Rectal: Deferred Extremities: No calf tenderness, Normal capillary refill, Normal inspection, Normal range of motion, Non-tender, No pedal edema Musculoskeletal : Apperance: Normal Neurologic: Alert, commercial crabber II-XII nml as Tested, No Motor Deficits, Normal Affect, Normal Mood, No Sensory Deficits Cerebellar Function: Normal Reflexes: Normal Skin: Dry, Normal Color, Warm Lymphatic: No Adenopathy Was a procedure done? Was a procedure done?: No Differential Dx Considerations may include: foreign body of the eye X-Ray, Labs, Meds, VS Vital Signs Date Time Temp Pulse Resp B/P (MAP) Pulse Ox O2 Delivery O2 Flow Rate FiO2 12/9/24 15:03 98.6 78 19 146/99 (115) 97 Time of 1ST Reevaluation: 19:04 Reevaluation 1ST: Unchanged Patient Education/Counseling: Diagnosis, Treatment, Prognosis Family Education/Counseling: No Family Present Departure 1 Departure Time of Disposition: 19:46 (Patient has a small foreign metallic body in the retina with a small rust ring. I removed the metallic body and much of the rust ring. ) Impression: Primary Impression: Metal foreign body in eye region Disposition: HOME / SELF CARE / HOMELESS Condition: Stable Referrals: ERROL CHANG MD Additional Instructions: Please call Dr. Chang an opthalmologist for an appointment tomorrow morning for the metallic rust ring in your eye. You were prescribed erythromycin eye ointment. Please use as directed. If your symptoms worsen then please return to the ER. e-Prescriptions Erythromycin (Erythromycin) 5 Mg/Gm Oin 1 MG OP QID for 7 Days, #28 OIN Prov: LUIS LUCIANO MD 08/05/24 Discharged With: Self Critical Care Note Critical Care Time?: No Stability Stability form required: No I personally scribed for LUIS LUCIANO MD ([email or web address]) on 08/05/24 at 18:42. Electronically submitted by Júnior Black ([email or web address]). LUIS LUCIANO MD Aug 05, 2024 18:42
[2024-08-05] MEDS ORDERED: FLUORESCEIN SOD OPTH TEST STRIP RIGHTEYE ONE (18:45)
[2024-08-05] MEDS ORDERED: TETRACAINE HCL 0.5% OPTH(EYE) SOLN 4ML RIGHTEYE ONE (18:45)
[2024-08-05] MEDS ORDERED: ERYTHROMY OPTH OINT 5mg/gm 1gm or 3.5gm tube OP ONE (19:45)
[2024-08-05] MEDS ORDERED: ERY05OO OP (19:53)
--- NOTE | 2024-08-27 23:19 | ED.PDOC ---
Was a procedure done? Was a procedure done?: Yes Sedation Sedation?: No Foreign Body Removal Foreign body in: Eye Anesthetic: Other (tetracaine) Prep: Saline Procedure: Not Incised, Other (used a 20guage needle to remove the metalic object, a rust ring remains) Informed consent obtained: Yes Risks/benefits/alt described: Yes LUIS LUCIANO MD Aug 27, 2024 23:19
== END 2024-08-05 21:35 | disposition home or self-care (01) ==
LOC: ER 14:32
DX: T15.91XA Foreign body on external eye, part unspecified, right eye, initial encounter (principal); I10 Essential (primary) hypertension; E11.9 Type 2 diabetes mellitus without complications; F17.210 Nicotine dependence, cigarettes, uncomplicated; W44.9XXA Unspecified foreign body entering into or through a natural orifice, initial encounter; Y93.89 Activity, other specified; Y92.89 Other specified places as the place of occurrence of the external cause; Y99.8 Other external cause status
CPT/HCPCS: 65205

== ENCOUNTER 2025-08-03 20:33 | Emergency (ER) | payer MEDICARE, MEDICAID ==
[~2025-08-03] VITALS: Ht 154.9 cm; Wt 102.1 kg
[~2025-08-03 20:33] MED LIST changes: -DENIES ANY HOME MEDS; +ERY05OO OP
--- NOTE | 2025-08-03 21:20 | ED.PDOC ---
Carlene. trauma (HPI) HPI Comments This is a 70 year old male presenting to the ED with chief complaint of rib pain. Patient reports that he had slipped and fell earlier today, hitting his left ribs against the arm of his couch. Patient relays that he has been experiencing left sided rib pain since then. Patient denies any numbness, weakness, tingling, chest pain, SOB, or further injuries. Chief Complaint: Rib Pain Time Seen by MD: 21:19 Primary Care Provider: NONE Reviewed notes: Nurses Notes, Medications, Allergies Allergies: Coded Allergies: NO KNOWN ALLERGIES (Unverified , 04/08/15) Home Meds Active Scripts Indomethacin (Indomethacin) 50 Mg Cap, 1 CAP PO TID PRN for 4 Days, #12 CAP Prov:CODY BERKOWITZ 08/03/25 Erythromycin (Erythromycin) 5 Mg/Gm Oin, 1 MG OP QID for 7 Days, #28 OIN Prov:LUIS LUCIANO MD 08/05/24 Information Source: Patient Mode of Arrival: Ambulatory Severity: Mild Timing: Hours Duration: Since onset Prehospital treatment: None Location: Other (Lt ribs) Mechanism: Fall Past Medical History PAST MEDICAL HISTORY: DM, HTN Surgical History: Denies all surgeries Family History Family History: Reviewed,noncontributory to illness Social History Smoker: Cigarettes, Less Than 1 Pack/Day Alcohol: Denies ETOH Use Drugs: Denies Drug Use Lives In: Home Constitutional: denies: chills, diaphoresis, fatigue, fever, malaise, sweats, weakness, others EENTM: denies: blurred vision, double vision, ear bleeding, ear discharge, ear drainage, ear pain, ear ringing, eye pain, eye redness, hearing loss, mouth pain, mouth swelling, nasal discharge, nose bleeding, nose congestion, nose pain, photophobia, tearing, throat pain, throat swelling, voice changes, others Respiratory: denies: cough, hemoptysis, orthopnea, SOB at rest, shortness of breath, SOB with excertion, stridor, wheezing, others Cardiovascular: denies: chest pain, dizzy spells, diaphoresis, Dyspnea on exertion, edema, irregular heart beat, left arm pain, lightheadedness, palpitations, PND, syncope, others Gastrointestinal: denies: abdomen distended, abdominal pain, blood streaked bowels, constipated, diarrhea, dysphagia, difficulty swallowing, hematemesis, melena, nausea, poor appetite, poor fluid intake, rectal bleeding, rectal pain, vomiting, others Genitourinary: denies: burning, dysuria, flank pain, frequency, hematuria, incontinence, penile discharge, penile sore, pain, testicle pain, testicle swelling, urgency, others Neurological: denies: dizziness, fainting, headache, left sided numbness, left sided weakness, numbness, paresthesia, pre-existing deficit, right sided numbness, right sided weakness, seizure, speech problems, tingling, tremors, weakness, others Musculoskeletal: reports: others (Lt rib pain); denies: back pain, gout, joint pain, joint swelling, muscle pain, muscle stiffness, neck pain Integumetry: denies: bruises, change in color, change in hair/nails, dryness, laceration, lesions, lumps, rash, wounds, others Allergic/Immunocompromised: denies: Difficulty Healing, Frequent Infections, Hives, Itching, others Hematologic/Lymphatic: denies: anemia, blood clots, easy bleeding, easy bruising, swollen glands, others Endocrine: denies: excessive hunger, excessive sweating, excessive thirst, excessive urination, flushing, intolerance to cold, intolerance to heat, unexplained weight gain, unexplained weight loss, others Psychiatric: denies: anxiety, bipolar disorder, depression, hopeless, panic disorder, schizophrenia, sleepless, suicidal, others All Other Systems: Reviewed and Negative Physical Exam General Appearance: No Apparent Distress, Normal HEENT: Pharynx Normal Neck: Full Range of Motion, Non-Tender Respiratory: Lungs Clear, No Respiratory Distress, Normal Breath Sounds, Other (Left lateral chest tenderness over 5th and 6th rib without crepitus or flail chest no noted external trauma) Cardiovascular: No Edema, No JVD, No Murmur, No Gallop, Normal Peripheral Pulses, Regular Rate/Rhythm Breast Exam: Deferred Gastrointestinal: No Organomegaly, Non Tender, No Pulsatile Mass, Normal Bowel Sounds, Soft Genitalia: Deferred Pelvic: Deferred Rectal: Deferred Extremities: Normal capillary refill, Normal range of motion, No pedal edema Musculoskeletal : Apperance: Normal Neurologic: Alert, No Motor Deficits, Normal Affect, Normal Mood, No Sensory Deficits Cerebellar Function: Normal Reflexes: NOT DONE Skin: Dry, Normal Color, Warm Lymphatic: No Adenopathy Was a procedure done? Was a procedure done?: No Differential Diagnosis Multiple Trauma: Fractures, Contusion, Other (Sprain, Strain) X-Ray, Labs, Meds, VS Vital Signs Date Time Temp Pulse Resp B/P (MAP) Pulse Ox O2 Delivery O2 Flow Rate FiO2 08/03/25 22:19 99.4 99.4 08/03/25 21:56 100.6 85 19 163/90 (114) 94 100.6 08/03/25 21:56 85 19 94 Room Air 08/03/25 20:47 98.4 87 20 136/94 95 98.4 Current Medications Medications (Trade) Dose Ordered Sig/Korin Route Start Time Stop Time Status Last Admin Oxycodone/ Acetaminophen (Percocet 5/ 325MG Tablet) 1 tab ONCE ONCE PO 08/03/25 21:15 08/03/25 21:16 DC 08/03/25 21:56 Ketorolac Tromethamine (Toradol Injection) 30 mg ONCE ONCE IM 08/03/25 21:15 08/03/25 21:16 DC 08/03/25 21:56 X-Ray, Labs, Meds, VS Comment IMPRESSION: 1. Question slight contour irregularity of the left anterior 5th rib correlate for nondisplaced fracture. 2. Superior endplate height loss measuring [address] questionable left anterior 5th rib fracture correlates with physical exam patient with moderate pinpoint tenderness. Patient given Toradol 30 mg IM and Gilbert 5 mg p.o. reports improvement in pain and function requesting discharge at this time. We will script trial of NSAID. Advised to alternate between ice and heat. Follow up with his PCP in 2-3 days as necessary ER return precautions given patient indicates understanding agrees with discharge plan of care. Images Reviewed?: Images reviewed and evaluated by me Time of 1ST Reevaluation: 21:19 Reevaluation 1ST: Unchanged Time of 2ND Reevaluation: 21:58 Reevaluation 2ND: Improved Patient Education/Counseling: Diagnosis, Treatment Family Education/Counseling: No Family Present Departure 1 Departure Time of Disposition: 21:57 Impression: Primary Impression: Fracture of left fifth rib Disposition: 01 HOME / SELF CARE / HOMELESS Condition: Stable e-Prescriptions Indomethacin (Indomethacin) 50 Mg Cap 1 CAP PO TID PRN for 4 Days, #12 CAP Prov: CODY BERKOWITZ 08/03/25 Discharged With: Self Critical Care Note Critical Care Time?: No Stability Stability form required: No Heart Score Heart Score: Heart Score Response (Comments) Value History N/A 0 EKG N/A 0 Age N/A 0 Risk Factors N/A 0 Troponin N/A 0 Total 0 I personally scribed for ER ([email or web address]) on 08/03/25 at 21:20. Electronically submitted by Dragan Thao ([email or web address]). ER Aug 03, 2025 21:20 CODY BERKOWITZ SANE RN Aug 03, 2025 21:59
--- NOTE | 2025-08-03 21:37 | DVH ---
EXAM: CT CHEST WITHOUT CONTRAST INDICATION: Status post fall left side chest wall injury TECHNIQUE: Noncontrast axial images of the chest have been obtained along with coronal and sagittal reformatted images. All CT scans at this facility use dose modulation, iterative reconstruction, and/or weight based dosing when appropriate to reduce radiation dose to as low as reasonably achievable. COMPARISON: XR CHEST 2 VIEWS on DOS: 11/02/24 FINDINGS: LOWER NECK: Unremarkable LYMPH NODES/MEDIASTINUM: No abnormal lymph nodes by CT size criteria CARDIOVASCULAR: Coronary artery calcifications. Normal cardiac size. No pericardial effusion. No aneurysmal dilatation of the great vessels. UPPER ABDOMEN: Mild bilateral adrenal gland thickening with likely underlying lipid rich adenomas. Unremarkable. MUSCULOSKELETAL: Question slight contour irregularity of the left anterior 5th rib correlate for nondisplaced fracture. Superior endplate height loss measuring 10 percent of T11. CHEST WALL: Left lateral chest wall lipoma measuring 6.3 x 3.1 cm. LUNG PARENCHYMA/PLEURAL SPACE: No pleural effusion or pneumothorax. No consolidation, suspicious focal airspace opacity, or suspicious nodules. IMPRESSION: 1. Question slight contour irregularity of the left anterior 5th rib correlate for nondisplaced fracture. 2. Superior endplate height loss measuring 10 percent of T1
[2025-08-03 21:56] VITALS: BP 163/90; PULSE 85; RESP 19; O2SAT 94
[2025-08-03] MEDS: OXYCODONE W/ ACETAMINOPHEN 5/325MG TABLET PO ONE (21:56)
[2025-08-03] MEDS: KETOROLAC TROMETH 60MG/2ML VIAL IM ONE (21:56)
[2025-08-03] MEDS ORDERED: INDO50CA82 PO (21:59)
[2025-08-03 22:19] VITALS: TEMP 99.4
== END 2025-08-03 22:20 | disposition home or self-care (01) ==
LOC: ER 20:33
DX: S22.32XA Fracture of one rib, left side, initial encounter for closed fracture (principal); E11.9 Type 2 diabetes mellitus without complications; F17.210 Nicotine dependence, cigarettes, uncomplicated; I10 Essential (primary) hypertension; W01.10XA Fall on same level from slipping, tripping and stumbling with subsequent striking against unspecified object, initial encounter; Y93.89 Activity, other specified; Y92.89 Other specified places as the place of occurrence of the external cause; Y99.8 Other external cause status
CPT/HCPCS: 71250; 96372; 99285; J1885